=== PATIENT | male | born 1995 | race Caucasian/White ===

== ENCOUNTER 2018-02-04 18:54 | Emergency (ER) | payer OTHER ==
[2018-02-04] MEDS ORDERED: Ibuprofen TAB* 600 MG PO ONE (19:31)
[2018-02-04 19:32] VITALS: BP 149/71
--- NOTE | 2018-02-04 19:39 | UC ---
Hand/Wrist HPI - HPI Summary HPI Summary: C/O right 3rd finger pain. Got closed in a door at work. - History Of Current Complaint Chief Complaint: UCUpperExtremity Stated Complaint: RT MIDDLE FINGER INJURY (WC) Time Seen by Provider: 02/04/18 19:16 Hx Obtained From: Patient Onset/Duration: Sudden Onset, Lasting Hours - 1 Severity Initially: Severe Severity Currently: Severe Pain Intensity: 8 Character Of Pain: Sharp, Dull, Aching, Throbbing Aggravating Factor(s): Movement Alleviating Factor(s): Nothing Associated Signs And Symptoms: Positive: Bruising. Negative: Numbness/Tingling Related History: Dominant Hand Right - Allergies/Home Medications Allergies/Adverse Reactions: Allergies Allergy/AdvReac Type Severity Reaction Status Date / Time No Known Allergies Allergy Verified 02/04/18 19:29 Home Medications: Home Medications NK [No Home Medications Reported] 02/04/18 [History Confirmed 02/04/18] PMH/Surg Hx/FS Hx/Imm Hx Previously Healthy: Yes - Surgical History Surgical History: None - Family History Known Family History: Positive: Diabetes - Social History Occupation: Student Lives: With Family Alcohol Use: Weekly Substance Use Type: None Smoking Status (MU): Heavy Every Day Tobacco Smoker Type: Cigarettes Amount Used/How Often: 1/2-3/4 ppd Length of Time of Smoking/Using Tobacco: since age 16 Have You Smoked in the Last Year: Yes Review of Systems Skin: Bruising ENT: Sore Throat, Nasal Discharge Respiratory: Cough Is Patient Immunocompromised?: No All Other Systems Reviewed And Are Negative: Yes Physical Exam Triage Information Reviewed: Yes Appearance: Well-Appearing, Well-Nourished, Pain Distress Vital Signs: Initial Vital Signs Temp 99.1 F 02/04/18 19:21 Pulse 94 02/04/18 19:21 Resp 18 02/04/18 19:21 BP 149/71 02/04/18 19:21 Pulse Ox 100 02/04/18 19:21 Vital Signs Reviewed: Yes Eyes: Positive: Conjunctiva Clear ENT: Positive: Pharynx normal, TMs normal Neck exam: Normal Respiratory Exam: Normal Musculoskeletal: Positive: ROM Limited @ - right 3rd DIP, Other: - subunguaul hematoma Neurological Exam: Normal Psychological Exam: Normal Skin Exam: Normal Hand/Wrist Course/Dx - Differential Dx/Diagnosis Differential Diagnosis/HQI/PQRI: Contusion, Fracture, Paronychia, Subungual Hematoma Provider Diagnoses: Right 3rd distal phalynx fracture. Subungual hematoma Discharge - Sign-Out/Discharge Documenting (check all that apply): Patient Departure All imaging exams completed and their final reports reviewed: No - Discharge Plan Condition: Stable Disposition: HOME Patient Education Materials: Finger Fracture (ED), Subungual Hematoma (ED) Forms: *Work Release Referrals: No Primary Care Phys,NOPCP [Primary Care Provider] - George Sinclair MD [Medical Doctor] - 2 Days - Billing Disposition and Condition Condition: STABLE Disposition: Home
[2018-02-04] MEDS ORDERED: HYDROcodone/ACETAMIN 5-325 MG* 1 TAB PO ONE (20:03)
--- NOTE | 2018-02-05 07:46 | RAD ---
HISTORY: Pain/trauma COMPARISONS: None VIEWS: 3 , Frontal, lateral, and oblique views date of the third digit of the right hand FINDINGS: BONE DENSITY: Normal. BONES: There is a nondisplaced fracture of the distal phalanx of the third digit best seen on the lateral projection. JOINTS: There is no arthropathy. ALIGNMENT: There is no dislocation. SOFT TISSUES: Unremarkable. OTHER FINDINGS: None. IMPRESSION: NONDISPLACED FRACTURE OF THE TUFT OF THE PHALANX OF THE THIRD DIGIT
--- NOTE | 2018-02-06 13:53 | UC ---
- Progress Note Progress Note: Patient Name: MICHAEL MURILLO Medical Record#: [id number] Ordering Physician: Tanmay Wilks MD Acct.#: [id number] : 1995 Age: 22 Sex: M Location: [facility] Exam Date: 02/04/181930 ADM Status: DEP ER Order Information: FINGER RIGHT MIDDLE Accession Number: [id number] CPT: 58818 HISTORY: Pain/trauma COMPARISONS: None VIEWS: 3 , Frontal, lateral, and oblique views date of the third digit of the right hand FINDINGS: BONE DENSITY: Normal. BONES: There is a nondisplaced fracture of the distal phalanx of the third digit best seen on the lateral projection. JOINTS: There is no arthropathy. ALIGNMENT: There is no dislocation. SOFT TISSUES: Unremarkable. OTHER FINDINGS: None. IMPRESSION: NONDISPLACED FRACTURE OF THE TUFT OF THE PHALANX OF THE THIRD DIGIT <Electronically signed by Michael Thompson MD in OV> 02/05/18742 Dictated By: Michael Thompson MD Dictated Date/Time: 02/05/18742 Transcribed Date/Time: 02/05/18741 Copy to: CC:Tanmay Wilks MD; No Primary Care Phys,NOPCP Imaging - [facility] [address] [place] [address] ph [phone]) ph ([phone]) ph ([phone]) This report is only to be considered final once signed by the Provider(s) as displayed in the "<Electronically Signed by >" field (s). Absence of a signature indicates the report is in a draft status and still needs to be finalized. In the event this document was created by someone other than the signing Provider, the individual initiating the document will be listed in the "Entered by:" or "Dictated by:" ellison. 1 of 1 Discharge - Sign-Out/Discharge Documenting (check all that apply): Post-Discharge Follow Up All imaging exams completed and their final reports reviewed: Yes - Discharge Plan Condition: Stable Disposition: HOME Prescriptions: HYDROcodone/ACETAMIN 5-325 MG* [[place] 5-325 TAB*] 1 tab PO Q4H PRN #14 tab MDD 6 PRN Reason: Pain - Moderate To Severe Patient Education Materials: Subungual Hematoma (ED), Finger Fracture (ED) Forms: *Work Release Referrals: George Sinclair MD [Medical Doctor] - 2 Days No Primary Care Phys,NOPCP [Primary Care Provider] - - Billing Disposition and Condition Condition: STABLE Disposition: Home
== END 2018-02-04 20:15 | disposition home or self-care (01) ==
LOC: UCCORT 18:54
DX: S60.151A Contusion of right little finger with damage to nail, initial encounter (principal); S62.622A Displaced fracture of middle phalanx of right middle finger, initial encounter for closed fracture; W23.0XXA Caught, crushed, jammed, or pinched between moving objects, initial encounter; Y92.9 Unspecified place or not applicable; Y99.0 Civilian activity done for income or pay; F17.210 Nicotine dependence, cigarettes, uncomplicated
CPT/HCPCS: 11740; 26750; 73140; 99202; A9270-GY; G0463